=== PATIENT | male | born 1945 | race Two or more races ===

== ENCOUNTER 2024-08-02 16:30 | Emergency (ER) | payer OTHER ==
[~2024-08-02] VITALS: Ht 175.3 cm; Wt 99.8 kg
[2024-08-02] MEDS ORDERED: ATORVASTATIN CA10 MG PO (16:45)
[2024-08-02] MEDS ORDERED: LOSARTAN POTASS50 MG PO (16:45)
[2024-08-02] MEDS ORDERED: GUAIFENESIN 200 MG/10 ML BLIST.PACK PO ONE ×2 (17:30→17:46)
[2024-08-02] MEDS ORDERED: ACETAMINOPHEN 500 MG GEL..CAP PO ONE ×2 (17:30→17:46)
[2024-08-02 18:33] LABS: HEMATOCRIT 37.3 % (39.0-48.0); HEMOGLOBIN 12.6 g/dL (13-16.00); MEAN CELL VOLUME 93.3 fL (80.0-100.00); MEAN CORPUSCULAR HEMOGLOBIN 31.6 pg (27.00-32.0); MEAN CORPUSCULAR HGB CONC 33.9 g/dl (32.0-36.0); PLATELET COUNT 207 K/uL (150-450); RED CELL DISTRIBUTION WIDTH 12.5 % (11.5-14.5)
== END 2024-08-02 19:35 | disposition home or self-care (01) ==
LOC: ER 16:33
PROVIDERS: Emergency Medicine
DX: J10.1 Influenza due to other identified influenza virus with other respiratory manifestations (principal); I10 Essential (primary) hypertension; Z20.822 Contact with and (suspected) exposure to COVID-19